=== PATIENT | female | born 1975 ===

== ENCOUNTER 2019-11-13 02:32 | Emergency (ER) | payer OTHER ==
[~2019-11-13] VITALS: Ht 170.2 cm; Wt 61.2 kg
[2019-11-13 02:33] VITALS: Ht 170.2 cm; Wt 61.2 kg
[2019-11-13 02:44] VITALS: BP 140/94
== END 2019-11-13 02:44 | disposition other institution (70) ==
LOC: ED 02:32
DX: Z02.89 Encounter for other administrative examinations (principal)